=== PATIENT | female | born 1995 | race Caucasian/White ===

== ENCOUNTER 2017-05-23 05:23 | Day surgery (SDC) | payer OTHER ==
[~2017-05-23] VITALS: Ht 162.6 cm; Wt 63.5 kg
--- NOTE | ~2017-05-23 | O ---
[facility] [address] [place] [address] OPERATIVE REPORT Name: ROSA JOYCE Room #: 150-5 [facility] M.R.#: [id number] Admission: 05/23/17 Attend Phys: Christiano Salas MD Discharge: Date of : 89 Report #: [id number] THIS REPORT FOR: //name// CC: [facility] physician/PCP Christiano Salas DATE OF SERVICE: 05/23/2017 PREOPERATIVE DIAGNOSIS: Right knee failed anterior cruciate ligament. POSTOPERATIVE DIAGNOSIS: Right knee failed anterior cruciate ligament. PROCEDURE: Right knee arthroscopy, debridement of ACL stump and notchplasty, followed by screw removal, reaming of the tunnels and application of allograft bone dowels and DBM putty. SURGEON: Christiano Salas MD. CRTS: LINDA Mello. ANESTHETIC: General. INDICATIONS: See hospital H and P. DESCRIPTION OF PROCEDURE: After adequate general anesthesia had been obtained, the patient's right lower extremity was prepped and draped in the usual meticulous sterile fashion. Limb was exsanguinated with gravity and tourniquet inflated to 300 torr. Superomedial portal established by first infiltrating with 0.5% Naropin and then making a stab incision with an 11 blade. Inflow cannula placed. Knee was insufflated with fluid. Anterolateral and anteromedial portals were established utilizing the same technique. Complete diagnostic arthroscopy was performed. The patient's ACL was disrupted. The stump was debrided. Notchplasty was performed to remove the soft tissue in the intercondylar notch roof and visualized the interference screw that had been placed. It was a metal interference screw. The PCL was intact. Chondral surfaces were preserved. She had evidence in the medial compartment of the significant meniscectomy in the past, but there was no recurrent meniscus tear, patellofemoral compartment normal. At this time, we used a portion of her previous incision anteromedially. Subq divided sharply. The periosteum was elevated off the anteromedial tibia. The screw was identified. It was then removed. A guidepin was placed up through the tibial tunnel, and then, the reamer was used to sequentially ream the tunnel to a size 10. We visualized the tunnel with the scope, and it was noted to have [facility] [address] [place] [address] OPERATIVE REPORT Name: ROSA JOYCE Room #: 150-5 [facility] M.R.#: [id number] Admission: 05/23/17 Attend Phys: Christiano Salas MD Discharge: Date of : 89 Report #: [id number] good bone circumferentially. The patient had had a transtibial ACL reconstruction, so it was relatively easy to access the femoral screw as well. This was removed without difficulty. A guidepin was placed up into this femoral tunnel, and then, it was reamed to a depth of about 30 mm, up to a 10 mm as well. We irrigated copiously, removed all bone debris and soft tissue. We then obtained two 10 mm dowels for backfilling the tunnels. These were then dipped in antibiotic irrigation and then impacted into position. First, the femoral tunnel, which gave us excellent fill and good press fit and then the tibial tunnel, which also gave us a good press fit. A bur was used to smooth off the surface intraarticularly on the tibial side. She did have a little bit of extra tunnel remaining after the dowel had been placed, and so I filled this in with the DBM putty. The wound was irrigated copiously once again. The periosteum was reapproximated with 2-0 Vicryl, subq closed with 2-0 Monocryl, skin closed with running subcuticular 2-0 Prolene. Steri-Strips applied. Scope portals closed with 4-0 nylon. Sterile compressive dressing was complied. By: [id number] Christiano Salas MD /nt
[~2017-05-23 05:23] MED LIST: VITAMIN B-12500 MC5 SUBLING
[2017-05-23 08:24] VITALS: BP 113/65
[2017-05-23 12:28] VITALS: BP 113/65
== END 2017-05-23 12:50 | disposition home or self-care (01) ==
LOC: TBA 05:23 → OR 05:23 → TBA 05:24 → OR 09:58
DX: T85.698A Other mechanical complication of other specified internal prosthetic devices, implants and grafts, initial encounter (principal); M25.361 Other instability, right knee; Z98.890 Other specified postprocedural states; Z88.2 Allergy status to sulfonamides; Y83.8 Other surgical procedures as the cause of abnormal reaction of the patient, or of later complication, without mention of misadventure at the time of the procedure
CPT/HCPCS: 50010; 50101; 50386; 50405; 50951; 51008; 51038; 52001; 54170; 55430; 56525; 56526; 62110; 62900; 64041; 70005